=== PATIENT | female | born 1980 | race Native Hawaiian/Other Pacific Islander ===

== ENCOUNTER 2023-01-30 12:15 | Outpatient (CLI) | payer OTHER | END 2023-01-30 18:59 | disposition home or self-care (01) | LOC: US 12:15 → CT 12:15 | PROVIDERS: ATTEND Nurse Practitioner Family | DX: R10.31 Right lower quadrant pain (principal) | CPT/HCPCS: 36415; 82565; 84520; Q9963 ==